=== PATIENT | female | born 1980 | race Caucasian/White ===

== ENCOUNTER 2020-01-14 10:05 | Outpatient (CLI) | payer BC, SELFPAY ==
--- NOTE | ~2020-01-14 | MM_ITS ---
EXAMINATION: MM screening [facility] BI w shanelle HISTORY: Screening mammogram TECHNIQUE: Craniocaudal and mediolateral oblique 3-D tomosynthesis images were obtained and synthetic 2-D images were generated. CAD analysis was submitted and interpreted. COMPARISON: 01/08/2019 bilateral digital screening mammogram BREAST PARENCHYMAL COMPOSITION: The breasts are heterogeneously dense, which may obscure small masses . FINDINGS: There is stable fibroglandular asymmetry. There is no evidence of suspicious mass, calcific ation, or architectural distortion to suggest malignancy in either breast. There has been no suspicio us interval change. IMPRESSION: 1. No mammographic evidence of malignancy. 2. Recommend routine screening mammography in one year. BI-RADS Category 1: Negative Reviewed, dictated and finalized at location A.
== END 2020-01-14 10:06 | disposition home or self-care (01) ==
LOC: ANHIMG 10:07
PROVIDERS: Visit Provider Obstetrics & Gynecology
DX: Z12.31 Encounter for screening mammogram for malignant neoplasm of breast (principal)
CPT/HCPCS: 77063; 77067

== ENCOUNTER 2020-12-25 14:27 | Outpatient (CLI) | payer BC, SELFPAY ==
--- NOTE | ~2020-12-25 | MM_ITS ---
EXAMINATION: MM screening [facility] BI w shanelle HISTORY: Screening TECHNIQUE: Craniocaudal and mediolateral oblique 3-D tomosynthesis images were obtained and synthetic 2-D images were generated. CAD analysis was submitted and interpreted. COMPARISON: Comparison to multiple prior studies sequentially, with oldest reviewed study dated 01/08. BREAST PARENCHYMAL COMPOSITION: There are scattered areas of fibroglandular density. FINDINGS: There is a new focal asymmetry superiorly and posteriorly in the right breast on MLO view. The left breast is stable without evidence for malignancy. IMPRESSION: 1. New focal asymmetry superiorly in the right breast on MLO view. 2. Additional mammographic views and possible breast ultrasound are recommended. BI-RADS CATEGORY 0 - INCOMPLETE STUDY, NEED ADDITIONAL IMAGING EVALUATION. Reviewed, dictated and finalized at location A. IMPRESSION: 1. New focal asymmetry superiorly in the right breast on MLO view. 2. Additional mammographic views and possible breast ultrasound are recommended . BI-RADS CATEGORY 0 - INCOMPLETE STUDY, NEED ADDITIONAL IMAGING EVALUATION.
== END 2020-12-25 14:28 | disposition home or self-care (01) ==
LOC: ANHIMG 14:28
PROVIDERS: PCP Family Medicine; Visit Provider Obstetrics & Gynecology
DX: Z12.31 Encounter for screening mammogram for malignant neoplasm of breast (principal); R92.8 Other abnormal and inconclusive findings on diagnostic imaging of breast
CPT/HCPCS: 77063; 77067

== ENCOUNTER 2021-01-01 10:16 | Outpatient (CLI) | payer BC, SELFPAY | END 2021-01-01 10:17 | disposition home or self-care (01) | LOC: ANHCOVIDVC 10:16 | PROVIDERS: PCP Family Medicine | DX: Z23 Encounter for immunization (principal) | CPT/HCPCS: 0001A; 91300 ==

== ENCOUNTER 2021-01-15 11:55 | Outpatient (CLI) | payer BC, SELFPAY ==
--- NOTE | ~2021-01-15 | MM_ITS ---
EXAMINATION: MM diagnostic mammo unilat RT HISTORY: Follow-up right breast asymmetry TECHNIQUE: Additional 3-D tomosynthesis images of the right breast were performed and synthetic 2-D i mages were generated. CAD analysis was submitted and interpreted. COMPARISON: Comparison to multiple prior studies sequentially, with oldest reviewed study dated 01/08. BREAST PARENCHYMAL COMPOSITION: Breast composed of scattered areas of fibroglandular density. FINDINGS: There are no suspicious masses, calcifications or architectural distortion in the right jerardo ast to suggest malignancy. Focal asymmetry posteriorly in the right breast on prior screening mammogr am not appreciated with spot compression or mediolateral views. IMPRESSION: 1. No evidence for malignancy in the right breast. 2. Routine yearly screening mammogram and regular clinical breast examination are recommended. BI-RADS Category 1: Negative Reviewed, dictated and finalized at location A. IMPRESSION: 1. No evidence for malignancy in the right breast. 2. Routine yearly screening mammogram and regular clinical breast examination a re recommended. BI-RADS Category 1: Negative
== END 2021-01-15 11:56 | disposition home or self-care (01) ==
PROVIDERS: PCP Family Medicine; Visit Provider Obstetrics & Gynecology
DX: R92.8 Other abnormal and inconclusive findings on diagnostic imaging of breast (principal)
CPT/HCPCS: 77065

== ENCOUNTER 2021-01-22 10:10 | Outpatient (CLI) | payer BC, SELFPAY | END 2021-01-22 10:11 | disposition home or self-care (01) | LOC: ANHCOVIDVC 10:10 | PROVIDERS: PCP Family Medicine | DX: Z23 Encounter for immunization (principal) | CPT/HCPCS: 0002A; 91300 ==

== ENCOUNTER → 2021-04-13 03:48 | Outpatient (CLI) | payer BC, SELFPAY ==
[2021-04-13 18:52] LABS: SARS-CoV-2 RNA PCR Negative
== END ==
PROVIDERS: PCP Family Medicine; Visit Provider Physician Assistant
DX: Z20.822 Contact with and (suspected) exposure to COVID-19 (principal)
CPT/HCPCS: C9803; U0003; U0005

== ENCOUNTER 2022-04-04 07:33 | Outpatient (CLI) | payer BC, SELFPAY ==
--- NOTE | ~2022-04-04 | MM_ITS ---
EXAMINATION: MM screening [facility] BI w shanelle HISTORY: Screening TECHNIQUE: Craniocaudal and mediolateral oblique 3-D tomosynthesis images were obtained and synthetic 2-D images were generated. CAD analysis was submitted and interpreted. COMPARISON: No prior mammogram is available for comparison at this institution. BREAST PARENCHYMAL COMPOSITION: There are scattered areas of fibroglandular density. FINDINGS: There is no evidence of suspicious mass, calcification, or architectural distortion to sugg est malignancy in either breast. There has been no suspicious interval change. IMPRESSION: 1. No mammographic evidence of malignancy. 2. Recommend routine screening mammography in one year. BI-RADS Category 1: Negative Reviewed, dictated and finalized at location L.
== END 2022-04-04 07:34 | disposition home or self-care (01) ==
PROVIDERS: PCP Family Medicine; Visit Provider Obstetrics & Gynecology
DX: Z12.31 Encounter for screening mammogram for malignant neoplasm of breast (principal)
CPT/HCPCS: 77063; 77067

== ENCOUNTER → 2022-05-10 01:46 | Outpatient (CLI) | payer BC, SELFPAY ==
[2022-05-10 11:35] LABS: SARS-CoV-2 RNA PCR Negative
== END ==
PROVIDERS: PCP Nurse Practitioner; Visit Provider Nurse Practitioner
DX: R43.9 Unspecified disturbances of smell and taste (principal); Z20.822 Contact with and (suspected) exposure to COVID-19
CPT/HCPCS: C9803; U0003; U0005

== ENCOUNTER 2023-06-06 07:14 | Outpatient (CLI) | payer BC, SELFPAY ==
--- NOTE | ~2023-06-06 | MM_ITS ---
EXAMINATION: MM screening [facility] BI w shanelle HISTORY: Screening TECHNIQUE: Craniocaudal and mediolateral oblique 3-D tomosynthesis images were obtained and synthetic 2-D images were generated. CAD analysis was submitted and interpreted. COMPARISON: Comparison to multiple prior studies sequentially, with oldest reviewed study dated 01/08. BREAST PARENCHYMAL COMPOSITION: FINDINGS: There is a new focal asymmetry posteriorly at the nipple line on the MLO view overlying the pectoralis muscle. The right breast is stable. IMPRESSION: 1. No focal right breast asymmetry posteriorly on MLO view only. 2. Recommend spot MLO, mediolateral and exaggerated CC views with additional ultrasound. BI-RADS Category 0: Incomplete: Needs additional imaging evaluation. Reviewed, dictated and finalized at location A. IMPRESSION: 1. No focal right breast asymmetry posteriorly on MLO view only. 2. Recommend spot MLO, mediolateral and exaggerated CC views with additional ul trasound. BI-RADS Category 0: Incomplete: Needs additional imaging evaluation.
== END 2023-06-06 07:15 | disposition home or self-care (01) ==
LOC: ANHIMG 07:16
PROVIDERS: PCP Family Medicine; Visit Provider Obstetrics & Gynecology
DX: Z12.31 Encounter for screening mammogram for malignant neoplasm of breast (principal); R92.8 Other abnormal and inconclusive findings on diagnostic imaging of breast
CPT/HCPCS: 77063; 77067

== ENCOUNTER 2023-06-30 12:42 | Outpatient (CLI) | payer BC, SELFPAY ==
--- NOTE | ~2023-06-30 | MMUS_ITS ---
EXAMINATION: MM diagnostic belkys RT w shanelle, US breast RT complete HISTORY: Follow-up right breast asymmetry TECHNIQUE: Additional 3-D tomosynthesis images of the right breast were performed and synthetic 2-D i mages were generated. CAD analysis was submitted and interpreted. High resolution complete right jacqueline st ultrasound was performed. COMPARISON: Comparison to multiple prior studies sequentially, with oldest reviewed study dated 01/08. BREAST PARENCHYMAL COMPOSITION: The breasts are heterogeneously dense, which may obscure small masses FINDINGS: MAMMOGRAPHIC FINDINGS: The focal area of asymmetry in the right breast on MLO view compresses with spot compression and is n ot visible on medial lateral or exaggerated CC view. ULTRASOUND: Complete US of all 4 quadrants of the right breast and retroareolar region was reviewed. Normal heter ogeneous echotexture without focal solid or cystic mass. IMPRESSION: 1. No evidence for malignancy in the right breast. 2. Routine yearly screening mammogram and regular clinical breast examination are recommended. BI-RADS Category 1: Negative Reviewed, dictated and finalized at location A. IMPRESSION: 1. No evidence for malignancy in the right breast. 2. Routine yearly screening mammogram and regular clinical breast examination a re recommended. BI-RADS Category 1: Negative
== END 2023-06-30 12:43 | disposition home or self-care (01) ==
PROVIDERS: PCP Family Medicine; Visit Provider Obstetrics & Gynecology
DX: N64.89 Other specified disorders of breast (principal)
CPT/HCPCS: 76641; 77061; 77065; G0279

== ENCOUNTER 2024-07-05 07:33 | Outpatient (CLI) | payer BC, SELFPAY ==
--- NOTE | ~2024-07-05 | MM_ITS ---
EXAMINATION: MM screening [facility] BI w shanelle HISTORY: Screening TECHNIQUE: Craniocaudal and mediolateral oblique 3-D tomosynthesis images were obtained and synthetic 2-D images were generated. CAD analysis was submitted and interpreted. COMPARISON: Comparison to multiple prior studies sequentially, with oldest reviewed study dated 09/2019. BREAST PARENCHYMAL COMPOSITION: Dense: The breasts are heterogeneously dense, which may obscure small masses FINDINGS: There is no evidence of suspicious mass, calcification, or architectural distortion to sugg est malignancy in either breast. There has been no suspicious interval change. IMPRESSION: 1. No mammographic evidence of malignancy. 2. Recommend routine screening mammography in one year. BI-RADS Category 1: Negative Reviewed, dictated and finalized at location B.
== END 2024-07-05 07:34 | disposition home or self-care (01) ==
LOC: ANHIMG 07:35
PROVIDERS: PCP Family Medicine; Visit Provider Obstetrics & Gynecology
DX: Z12.31 Encounter for screening mammogram for malignant neoplasm of breast (principal)
CPT/HCPCS: 77063; 77067

== ENCOUNTER 2025-04-25 00:25 | Day surgery (SDC) | payer BC, SELFPAY ==
[2025-04-13 14:17] VITALS: BMI 23.7
--- NOTE | 2025-04-13 14:26 | PC.NURSE ---
Report to the Outpatient Waiting Room, entrance under the green pavilion located off [facility], at time _0800_ on date _[id number]_. Planned Procedure Time: _1000_.? Time changes happen often and if your time is changed the preop area will call you the afternoon before. - You and your visitor will be asked to self-screen and do not enter if you have any COVID symptoms. Please call surgeon if you need to reschedule. - A mask is optional within the hospital at this time. Patients may have clear liquids (water, carbonated beverages, clear teas, apple juice) until 3 hours prior to surgery with a maximum of 20 ounces. - No food from midnight until time of surgery and no smoking, or chewing tobacco (or any form of nicotine). No chewing gum, candy or mints. Take only the following medications with a SIP of water on the morning of surgery: ____None___ DO NOT STOP ANY OF YOUR OTHER PRESCRIPTION MEDICATIONS PRIOR TO SURGERY EXCEPT THE FOLLOWING Hold all vitamins and supplements for 3 days per anesthesiologist. Medications to discontinue per physician Patient says Dr Angelo told her to hold medicated nose sprays for 1 week. Skipping tomorrows dose of Zepbound. Date to take last dose Please no make-up, nail khmer, hairspray, perfume, deodorant, or body powder the day of surgery.? No jewelry (including any body piercings) or valuables the day of surgery, leave them at home.? Please take a shower or bath the night before, or the morning of, surgery with an antibacterial soap.? Wear comfortable, loose fitting clothing.? - Jewelry must be removed prior to entering the operating room.? Rings and piercings that are not removed may be cut off. - The hospital will not accept responsibility for valuables.? - Please leave all valuables, including medications, at home the day of surgery. If you are going home after surgery, a licensed ice delivery driver must drive you home.? - NO public transportation without another adult if you receive anesthesia. - We recommend that an adult stay with you for 24 hours following discharge. - We also recommend that you do not drive, make important decision, drink alcoholic beverages, or take any drugs that were not prescribed by your health care provider for at least 24 hours after your discharge time. Follow any additional instructions given to you from your surgeon. Telephone instructions given to ___Zohra__and asked if any additional questions and then verbalized understanding. Patient advised to call surgeon office or pre surgery nurse liaison [phone] if any additional questions.
--- NOTE | 2025-04-23 16:00 | PM.IMHP ---
H&P: HPI History of Present Illness Date/Time: 04/23/25 16:00 Chief Complaint: septal deviation turbinate hypertrophy Narrative: planned surgical procedure Review of Systems Review of Systems: All systems reviewed & are unremarkable except as noted in HPI and below PMFSH Past Medical History Medical History Screening mammogram, encounter for UTI (urinary tract infection) Encounter for IUD removal 05/23/20 Mirena removal/replacement 07/24/20 Mirena removal Encounter for IUD insertion 06/07/15 Mirena insertion 05/23/20 Mirena removal/replacement Anemia during Abnormal Pap smear of cervix 06/10/2016 +hpv Surgical History Surgical History Hx of LASIK (~2018) History of colposcopy with cervical biopsy 07/17/16 benign Hx of tonsillectomy (~1992) Family History Family History Grandparent Diabetes mellitus Mother Hypertension Family history of cardiovascular disease Diabetes mellitus Other Family history of elevated blood lipids Social History Social History Social History: Caffeine-soda Smoking status: Never smoker Alcohol intake: current Drinks per week: 1 Substance use: never Substance use type: does not use Do You Feel Safe in your Home?: Yes Lack of Transportation: No Lack of Food: Never True Current Housing: I Have Housing Concerned About Future Housing: No Difficulty Paying Gas/Electric Bills: No Difficulty Paying for Meds: No Currently Unemployed: No Education: Master's Degree or Higher Difficulty w/ Childcare or Family Care: No Living arrangements: with family Additional living arrangements comments: Occupation/Education: occupation Additional occupation/education comments: IT Gender identity (if verbalized by the patient): Female Sexual Orientation (if Verbalized by the Patient): Straight or Heterosexual Spiritual care concerns: No Meds Home Medications and Allergies Home Medications ?Medication ?Instructions ?Recorded ?Confirmed ?Type cholecalciferol (vitamin D3) 125 125 mcg PO DAILY 11/06/20 04/13/25 History mcg (5,000 unit) tablet (Vitamin D3) omega 4-gyj-ary-fish oil 1,200 mg 1 cap PO DAILY 11/06/20 04/13/25 History (144 mg-216 mg) capsule (Fish Oil) cyclobenzaprine 10 mg tablet 10 mg PO TID PRN muscle spasm #90 04/24/23 04/13/25 Rx tabs multivitamin 1 tablet PO DAILY 02/27/24 04/13/25 History tirzepatide (weight loss) 2.5 2.5 mg (0.5 mL) subcut WEEKLY #6 mL 10/14/24 04/13/25 Rx mg/0.5 mL subcutaneous pen injector (Zepbound) fluticasone propionate 50 1 spray intranasal BID #16 grams 11/09/24 04/13/25 Rx mcg/actuation nasal spray,suspension sumatriptan succinate 100 mg tablet See Rx Instructions .Route 02/02/25 04/13/25 Rx .COMPLEX #9 tabs galcanezumab-gnlm 120 mg/mL 120 mg subcut MONTHLY #2 mL 02/28/25 04/13/25 Rx subcutaneous pen injector (Emgality Pen) fluconazole 150 mg tablet 150 mg PO ONCE #2 tabs 04/07/25 04/13/25 Rx Allergies Allergy/AdvReac Type Severity Reaction Status Date / Time amoxicillin Allergy Intermediate Rash Verified 04/13/25 14:14 butorphanol Allergy Unknown disorientat Verified 04/13/25 14:14 ion Penicillins Allergy Unknown blotchy Verified 04/13/25 14:14 skin, red forearms kg Exam Narrative: septal deviation turbinate hypertrophy Assessment and Plan Assessment and plan (1) Hypertrophy of both inferior nasal turbinates: Code(s): J34.3 - Hypertrophy of nasal turbinates Status: Acute Assessment and Plan: plan OR endoscopic assisted septoplasty bilateral inferior turbinate reduction with outfracture. Total operative time already put to risks were discussed bleeding infection damage trach structures septal perforation failure resolve symptoms change in nasal cosmetic appearance total blindness CSF leak brain brain damage change in vision need further procedures time off work, school inherent risk medication use. Patient voiced understanding these risks and agreed. Also discussed damage any structures the clavicles on my self damage any structures duction remains anesthesia. Anesthesia general. (2) Nasal obstruction: Code(s): J34.89 - Other specified disorders of nose and nasal sinuses Status: Acute (3) Nasal septal deviation: Code(s): J34.2 - Deviated nasal septum Status: Acute
[2025-04-25] VITALS (8 sets, daily range): BP systolic 99–130; BP diastolic 53–68; PULSE 67–84; RESP 12–16; TEMP 36.3–37.4; O2SAT 100
--- OUTSIDE RECORDS SUMMARY | 2025-04-25 00:29 | XMS_ITS | Continuity of Care Document ---
Author Organization [facility] Address [address] [place] [address] Phone Care Team Providers Care Launderette Attendant Name Role Phone Tami JARVIS, Trav Unavailable Unavailable Advance Directives Directive Yes / No Effective Date File Name No Information Encounters Encounter Description Practice Location Reason(s) For Visit Diagnoses Date Provider Providers Copied on Encounter [facility], [address], [place], [place], [id number], [place] tel:[phone] [facility] No Information Tami Ravi. [address] , [place], [place], [id number], [place]. tel:[phone] Referring Provider: Meng Lopez, [address], [place], [address]. Family History Family Member Type Diagnosis Age At Onset No Information Payers Payer name Insurance type Covered republican ID Authoriza tion(s) [facility] ACC[facility] [id number] Social History Type Description Quantity Date Captured Comments Sex Female Smoking Status No Information Chief Complaint And Reason For Visit No Information Reason For Referral Reason For Referral No Information History Of Present Illness Encounter Date Complaint History Of Prese nt Illness No Information Functional Status Date Functional Assessmen t No Information Instructions Date Instruction Additional Infor mation No Information Assessments Type Assessment Date No Information Patient Care Teams Name Effective Dates (start - stop) Status Members No Information
--- OUTSIDE RECORDS SUMMARY | 2025-04-25 00:29 | XMS_ITS | Clinical Summary ---
Author Organization [facility] Address [address] [place] [address] Care Team Providers Care Medical Delivery Driver Name Role Phone Dary Salinas MD Primary Care Provider [phone] Allergies Active Allergy Reactions Criticality Noted Date Comments Amoxicillin Rash Medium 01/15/2024 Butorphanol Hallucinations High 01/15/2024 Medications amitriptyline (ELAVIL) 10 MG tablet Take 1 tablet (10 mg total) by mouth nightly at bedtime. 01/14/2024 Active multi vitamin/mineral s (THERA-M ENHANCED) tablet Take 1 tablet by mouth daily. 01/14/2024 Active fish oil (OMEGA-3 FATTY ACID) 1000 MG Cap capsule Take 1 capsule (1,000 mg total) by mouth 2 (two) times daily. 01/14/2024 Active vitamin D3, cholecalciferol , 125 mcg capsule Take 1 capsule (125 mcg total) by mouth daily. Active Erenumab-aooe (AIMOVIG SC)Indications: Migraine Inject into the skin every 30 (thirty) days. Indications: Migraine Headache Active Active Problems No known active problems Social History Tobacco Use Types Packs/Day Years Used Date Smoking Tobacco: Never Smokeless Tobacco: Never Tobacco Cessation:Counseling Given: Not Answered Alcohol Use Standard Drinks/Week Comments Yes 0 (1 standard drink = 0.6 oz pur e alcohol) socially Comments No Sex and Gender Information Value Date Recorded Sex Assigned at Not on file Legal Sex Female 11:53 AM CDT Gender Identity Not on file Sexual Orientation Not on file Last Filed Vital Signs Vital Sign Reading Time Taken Comments Blood Pressure 101/71 01/22/2024 10:30 AM CDT Pulse 77 01/22/2024 10:30 AM CDT Temperature 36.8 C (98.3 F) 01/22/2024 9:13 AM CDT Respiratory Rate 18 01/22/2024 10:30 AM CDT Oxygen Saturation 72% 01/22/2024 10:30 AM CDT Inhaled Oxygen Concentration - - Weight 70.3 kg (155 lb) 01/15/2024 3:44 PM CDT Height 162.6 cm (5' 4) 01/15/2024 3:44 PM CDT Body Mass Index 26.61 01/15/2024 3:44 PM CDT Plan of Treatment Health Maintenance Due Date Last Done Comments Cervical Cancer Screening Pa p Smear (Age 30 to 64) Every 3 Years 1978 Annual Physical 1981 Hepatitis C 1996 DTaP, Tdap and Td Vaccines ( 1 - Tdap) 1997 Hepatitis B Vaccines (1 of 3 - 19+ 3-dose series) 1997 Cervical Cancer Screening Pa p with HPV Testing (Age 30 to 64) Every 5 Years 2008 Cervical Cancer Screening wi th HPV 2008 Mammogram Screening 2018 COVID-19 Vaccine (2023-2 5 season) 2024 10/04/2021, 01/22/2021, 01/01/2021 Colorectal Cancer Screening Colonoscopy (10 Years) 01/21/2034 01/22/2024, 01/22/2024 Meningococcal B Vaccine Aged Out No l onger eligible based on patient's age to complete this topic Meningococcal Vaccine Aged Out No pablito dorothy eligible based on patient's age to complete this topic Pneumococcal Vaccine: Pediatrics (0 to 5 Years) and At-Risk Patients (6 to 49 Years) Aged Out No longer eligible b ased on patient's age to complete this topic RSV Immunizations Under 20 Months Aged Out No longer eligible b ased on patient's age to complete this topic Procedures Procedure Name Priority Date/Time Associated Diagnosis Comments COLONOSCOPY Routine 01/22/2024 9:08 AM CDT from Last 3 Months or Most Recently Relevant to Health Maintenance Insurance [facility] Care Teams Medical Delivery Driver Relationship Specialty Start Date End Date Dary Salinas MD [address] [place] [address] PCP - General SURGERY 01/15/24
[2025-04-25] MEDS: LACTATED RINGERS 1,000 ML 30 ML IV CONT ×2 (11:30→13:42)
--- NOTE | 2025-04-25 11:44 | WPDANESEPPF ---
Anes - Initial Pre Proc Eval Procedure: Operation Date: 04/25/25 12:00 Proposed Procedures p Bilateral Inferior Turbinate Reduction with Outfracture, - Sukhi Angelo MD s Endoscopic Septoplasty - Sukhi Angelo MD Date/Time: 04/25/25 11:44 Surgeon: Sukhi Angelo MD Pre Op Diagnosis: deviated nasal septum, nasal hypertrophy, migrains Patient Data Age: 44 Gender: F Height: 1.63 m Weight: 62.7 kg Allergies Allergy/AdvReac Type Severity Reaction Status Date / Time amoxicillin Allergy Intermediate Rash Verified 04/25/25 07:50 butorphanol Allergy Unknown disorientat Verified 04/25/25 07:50 ion Penicillins Allergy Unknown blotchy Verified 04/25/25 07:50 skin, red forearms kg Home Medications ?Medication ?Instructions ?Recorded ?Confirmed ?Type cholecalciferol (vitamin D3) 125 125 mcg PO DAILY 11/06/20 04/13/25 History mcg (5,000 unit) tablet (Vitamin D3) omega 9-fio-qfk-fish oil 1,200 mg 1 cap PO DAILY 11/06/20 04/13/25 History (144 mg-216 mg) capsule (Fish Oil) cyclobenzaprine 10 mg tablet 10 mg PO TID PRN muscle spasm #90 04/24/23 04/13/25 Rx tabs multivitamin 1 tablet PO DAILY 02/27/24 04/13/25 History tirzepatide (weight loss) 2.5 2.5 mg (0.5 mL) subcut WEEKLY #6 mL 10/14/24 04/13/25 Rx mg/0.5 mL subcutaneous pen injector (Zepbound) fluticasone propionate 50 1 spray intranasal BID #16 grams 11/09/24 04/13/25 Rx mcg/actuation nasal spray,suspension sumatriptan succinate 100 mg tablet See Rx Instructions .Route 02/02/25 04/13/25 Rx .COMPLEX #9 tabs galcanezumab-gnlm 120 mg/mL 120 mg subcut MONTHLY #2 mL 02/28/25 04/13/25 Rx subcutaneous pen injector (Emgality Pen) fluconazole 150 mg tablet 150 mg PO ONCE #2 tabs 04/07/25 04/13/25 Rx Patient hx anesthesia problems: none Family hx anesthesia problems: none Results Review: All pre-operative results and documents have been reviewed as part of the pre-operative evaluation. [facility] Past Medical History Medical History Screening mammogram, encounter for UTI (urinary tract infection) Encounter for IUD removal 05/23/20 Mirena removal/replacement 07/24/20 Mirena removal Encounter for IUD insertion 06/07/15 Mirena insertion 05/23/20 Mirena removal/replacement Anemia during Abnormal Pap smear of cervix 06/10/2016 +hpv Surgical History Surgical History Hx of LASIK (~2018) History of colposcopy with cervical biopsy 07/17/16 benign Hx of tonsillectomy (~1992) Family History Family History Grandparent Diabetes mellitus Mother Hypertension Family history of cardiovascular disease Diabetes mellitus Other Family history of elevated blood lipids Social History Social History Social History: Caffeine-soda Smoking status: Never smoker Alcohol intake: current Drinks per week: 1 Substance use: never Substance use type: does not use Do You Feel Safe in your Home?: Yes Lack of Transportation: No Lack of Food: Never True Current Housing: I Have Housing Concerned About Future Housing: No Difficulty Paying Gas/Electric Bills: No Difficulty Paying for Meds: No Currently Unemployed: No Education: Master's Degree or Higher Difficulty w/ Childcare or Family Care: No Living arrangements: with family Additional living arrangements comments: Occupation/Education: occupation Additional occupation/education comments: IT Gender identity (if verbalized by the patient): Female Sexual Orientation (if Verbalized by the Patient): Straight or Heterosexual Spiritual care concerns: No Anes - Eval Final PreProcedure Day of Procedure 04/25/25 11:44 Patient weight: normal Heart: regular rate and rhythm Lungs: clear to auscultation Airway: Mallampati scale class II Neurological: alert and oriented Last oral intake: >/= 8 hours ASA classification: II Emergent: no Anesthetic plan: proceed Anesthesia type and monitoring: general ETT and standard monitoring Results Review: All pre-operative results and documents have been reviewed as part of the pre-operative evaluation. Informed Consent: The patient's anesthetic plan and its attendant risks and benefits were discussed with the patient/family/POA. Questions were solicited and answers provided to the satisfaction of the patient/family/POA.
[2025-04-25] MEDS: ACETAMINOPHEN 500 MG TABLET 1000 MG PO (11:50)
[2025-04-25] MEDS: SCOPOLAMINE 1 MG PATCH 1 PATCH TRANSDERM (11:57)
--- NOTE | 2025-04-25 12:08 | WPDHPUPDATE1 ---
History and Physical Update Update Date/Time: 04/25/25 12:08 History and Physical has been reviewed, including an updated exam of the patient. There are NO changes in the patient's condition. Risks, benefits, and alternatives have been discussed and questions answered. Patient agrees to proceed with procedure.
--- NOTE | 2025-04-25 12:13 | WPDHPUPDATE1 ---
History and Physical Update Update Date/Time: 04/25/25 12:13 History and Physical has been reviewed, including an updated exam of the patient. There are NO changes in the patient's condition. Risks, benefits, and alternatives have been discussed and questions answered. Patient agrees to proceed with procedure.
[2025-04-25] MEDS: ceFAZolin 2 GM in SODIUM CHLORIDE 0.9% IV 50 ML 100 ML IVPB (12:39)
[2025-04-25] MEDS: LIDO 1%/EPINEPHRINE 1:100,000 50 ML VIAL INFILTRATE (12:41)
[2025-04-25] MEDS: MUPIROCIN 2% OINT 22 GM TUBE 1 APPLIC TOPICAL (13:32)
[2025-04-25] MEDS: OXYMETAZOLINE HCL 0.05% NAS 15 ML BTL (*BKC) 1 SPRAY NASAL (13:33)
--- NOTE | 2025-04-25 14:02 | P.OP_ITS ---
Procedure Note - Detailed Date of Procedure 04/25/25 Pre-op Diagnosis deviated nasal septum, nasal hypertrophy, migrains Post-op Diagnosis Same Procedure Performed Endoscopic assisted septoplasty, bilateral inferior turbinate action with outfracture Surgeon Sukhi Angelo MD Anesthesia General Indications See above Findings Severely rightward deviated nasal septum left spurs well both removed minimal tearing no perforations abutting each other. Description of Procedure Patient identified consent verified the preoperative holding area. Patient brought to the operating room. Time-out performed. General anesthesia induced endotracheal tube secured airway. Patient prepped draped position procedure confirmed 2nd time-out performed. Total 15 cc 1% lidocaine 1 100,000 parts epinephrine checked the bilateral nasal septum as well as inferior turbinates. Afrin-soaked pledgets placed for 5 minutes then removed. 0 degree scope utilized throughout the procedure. Bernabe incision made left side very anterior left nasal septal flap elevated. Releasing tear created. Osteotome utilized to cross over right nasal septal flap elevated there were tears bilaterally how in the same region as each. Deviated septum removed Ulises Izaguirre forceps Lefty forceps and osteotome. Cancellous bone superiorly and inferiorly was oozing slightly. FloSeal was placed on this. Septum was then washed out [place] incision closed with 3 interrupted sorry for interrupted 5 0 fast gut sutures. Turbinates reduced in the submucosal plane 1.9 mm [place] turbinate blade sorry [employer] turbinate blade. No tears. They were then outfractured. Very very good outfracture and reduction. Bilateral nasal passages suction and bleeding was well controlled total blood loss 15 cc. Emery splints were placed sutured anteriorly using a 3-0 mattress nylon suture. Patient tolerated the procedure well no complications care the patient back to Anesthesiology. I performed all dictated portions of procedure. Estimated Blood Loss 15 Drains No Packing No Pathology None sent Complications No immediate complications Condition Stable Disposition PACU [facility] Billing Surgery - Charge Forward: Surgery Billing
[2025-04-25] MEDS: oxyCODONE HCL (*CRX) 5 MG TAB IR PO (15:06)
== END 2025-04-25 15:45 | disposition home or self-care (01) ==
PROVIDERS: PCP Family Medicine; Visit Provider Otolaryngology
PROC: (CPT 30520; principal; 2025-04-25 12:00)
PROC: (CPT 30520; 2025-04-25 12:00)
DX: J34.2 Deviated nasal septum (principal); J34.3 Hypertrophy of nasal turbinates; J34.89 Other specified disorders of nose and nasal sinuses; G89.18 Other acute postprocedural pain; Z98.890 Other specified postprocedural states; Z79.85 Long-term (current) use of injectable non-insulin antidiabetic drugs; Z82.49 Family history of ischemic heart disease and other diseases of the circulatory system
CPT/HCPCS: 30520; 30140; J0690; A9270; J0330; J1100; J2003; J2004; J2250; J2405; J2704; J3010; J7050; J7120

== ENCOUNTER 2025-07-15 07:35 | Outpatient (CLI) | payer BC, SELFPAY ==
--- NOTE | ~2025-07-15 | MM_ITS ---
EXAMINATION: MM screening belkys BI w shanelle HISTORY: Screening TECHNIQUE: Craniocaudal and mediolateral oblique 3-D tomosynthesis images were obtained and synthetic 2-D images were generated. CAD analysis was submitted and interpreted. COMPARISON: Comparison to multiple prior studies sequentially, with oldest reviewed study dated 12/25/2020. BREAST PARENCHYMAL COMPOSITION: Dense: The breasts are heterogeneously dense, which may obscure small masses FINDINGS: There is no evidence of suspicious mass, calcification, or architectural distortion to suggest malignancy in either breast. There has been no suspicious interval change. IMPRESSION: 1. No mammographic evidence of malignancy. 2. Recommend routine screening mammography in one year. BI-RADS Category 1: Negative Reviewed, dictated and finalized at location C.
--- OUTSIDE RECORDS SUMMARY | 2025-07-15 07:38 | XMS_ITS | Clinical Summary ---
Author Organization [facility] Address [address] [place] [id number] Care Team Providers Care Frame Feeder Name Role Phone Dary Salinas MD Primary Care Provider [phone] Allergies Active Allergy Reactions Criticality Noted Date [...] Date Last Done Comments Cervical Cancer Screening Pap Smear (Age 30 to 64) Every 3 Years 1978 Annual Physical 1981 Hepatitis C 1996 DTaP, Tdap and Td Vaccines (1 - Tdap) 1997 Hepatitis B Vaccines (1 of 3 - 19+ 3-dose series) 1997 Cervical Cancer Screening Pap with HPV Testing (Age 30 to 64) Every 5 Years 2008 Cervical Cancer Screening with HPV 2008 Mammogram Screening 2018 COVID-19 Vaccine ( season) 2025 10/04/2021, 01/22/2021, 01/01/2021 Influenza Adult (#1) 2025 06/19/2023, 07/12/2022, 07/09/2021, Additional history exists Colorectal Cancer Screening Colonoscopy (10 Years) 01/21/2034 01/22/2024, 01/22/2024 Hepatitis A Vaccines Aged Out No long er eligible based on patient's age to complete this topic Meningococcal B Vaccine Aged Out No l onger eligible based on patient's age to complete this topic Meningococcal Vaccine Aged Out No pablito dorothy eligible based on patient's age to complete this topic Pneumococcal Vaccine: Pediatrics (0 to 5 Years) and At-Risk Patients (6 to 49 Years) Aged Out No longer eligible based on patient's age to complete this topic RSV Immunizations Under 20 Months Aged Out No longer eligible based on patient's age to complete this topic Procedures Procedure Name Priority Date/Time Associated Diagnosis Comments COLONOSCOPY Routine 01/22/2024 9:08 AM CDT from Last 3 Months or Most Recently Relevant to Health Maintenance Insurance [facility] Care Teams Frame Feeder Relationship Specialty Start Date End Date Dary Salinas MD [address] [place] [address] PCP - General SURGERY 01/15/24
== END 2025-07-15 07:36 | disposition home or self-care (01) ==
LOC: ANHFOHIMG 07:36
PROVIDERS: PCP Family Medicine; Visit Provider Obstetrics & Gynecology
DX: Z12.31 Encounter for screening mammogram for malignant neoplasm of breast (principal)
CPT/HCPCS: 77063; 77067